=== PATIENT | female | born 1975 | race Caucasian/White ===

== ENCOUNTER 2016-10-28 20:52 | Inpatient (IN) ==
[2016-10-28] MEDS: SODIUM CHLORIDE 0.9% 1,000 ML IV STA (21:10)
[2016-10-28 21:37] LABS: Troponin I Only 0.189 NG/ML (0.00-0.045)
--- NOTE | 2016-10-28 21:40 | Emergency Department Note ---
Dmitriy Amato Emily, am scribing for, and in the presence of, Darien Lynne MD 21: 12. Maged Amato Robert M, MD, personally performed the services described in this documentation, ascribed by Elaine Izaguirre in my presence, and it is both accurate and complete . Arrival - Arrival Limitations: No Limitations Source: Patient - History of Present Illness HPI Narrative: Pt is a 41 y/o female who was transferred from [facility] to ED for further evaluation of possible chest pain that started while at work today. Pt was admitted 2 weeks for PNA and dx with COPD, given time off to rest but denies she had a heart attack then. Pt, today, c/o back and shoulder pain that started for the second time. Pt describes back pain as "pressure" and started up with movement while at work today, being her first day back. Pt notes that now in ED it has eased up. Pt has associated sxs of SOB, diaphoresis , dizziness but denies chest pain. Pt reports the same sxs when she was admitted 2 weeks ago. Pt is taking blood thinners and BP medication. Pt's BP in ED is 87/57. Onset (ago): hour(s) Consistency: constant Severity: moderate Severity scale (1-10): 6 Quality: aching Allergies/Adverse Reactions: Allergies Allergy/AdvReac Type Severity Reaction Status Date / Time No Known Allergies Allergy Unverified 10/28/16 21:06 Home Medications: Home Medications Medication Instructions Recorded Confirmed Type Albuterol Sulfate [Proair HFA] 2 puff INH Q6H PRN 10/28/16 10/28/16 History Aspirin 81 mg PO DAILY 10/28/16 10/28/16 History Folic Acid 0.8 mg PO DAILY 10/28/16 10/28/16 History Potassium Chloride 20 meq PO BID 10/28/16 10/28/16 History hydrALAZINE TAB [Apresoline Tab] 25 mg PO BID 10/28/16 10/28/16 History Review of System - Review of System 12 point system: reviewed and no additional remarkable complaints except as stated - Review of System Constitutional: Present: diaphoresis (only with pain). Absent: chills, fever Respiratory: Present: respiratory distress (with pain). Absent: cough Cardiovascular: Absent: chest pain, syncope Gastrointestinal: Absent: abdominal pain, nausea, vomiting Musculoskeletal: Present: back pain, upper back pain (shoulders). Absent: arm pain, neck pain Skin: Absent: rash Neurological: Present: other (dizziness). Absent: headache Medical,Surgical,& Family Hx - Family History Family History: noncontributory - Social History Functional capacity: independent ambulation Exam Vital Signs: Vital Signs Temperature 98.2 F 10/28/16 20:52 Pulse Rate 106 H 10/28/16 20:52 Respiratory Rate 20 10/28/16 20:52 Blood Pressure 84/61 10/28/16 20:52 O2 Sat by Pulse Oximetry 97 10/28/16 20:52 - General General appearance: alert, in no apparent distress, obese - Head Head exam: Present: atraumatic, normocephalic - Eye Eye exam: Present: PERRL, EOMI - ENT ENT exam: Present: mucous membranes moist. Absent: mucous membranes dry - Neck Neck exam: Present: full ROM. Absent: tenderness - Chest Chest inspection: Present: symmetric chest wall rise. Absent: tenderness - Respiratory Respiratory exam: Present: normal lung sounds bilaterally. Absent: respiratory distress - Cardiovascular Cardiovascular exam: Present: regular rate, normal rhythm, normal heart sounds - Abdominal Exam Abdominal exam: Present: soft. Absent: tenderness - Extremities Exam Extremities exam: Present: full ROM. Absent: tenderness, pedal edema - Neurological Exam Neurological exam: Present: alert, oriented X3, CN II-XII intact, motor sensory deficit - Psychiatric Psychiatric exam: Present: normal affect, normal mood - Skin Skin exam: Present: warm, dry, intact, normal color Course - Consultations Consultation #1: Dr. Santos was paged. Time: 21:41 Consultation #2: Dr. Santos will admit the patient. Time: 21:44 Results - Labs Lab Results: I have reviewed the patients labs (Troponin at [facility] was 0.229.) - EKG EKG results: interpreted by JAMIL (Nonspecific ST changes laterally when compared to [facility] EKG.) Disposition Clinical Impression: Chest pain Case discussed with: patient, patient's family Disposition: Still a Patient Condition: Stable Time of Disposition: 21:44
[2016-10-28] MEDS ORDERED: ZALEPLON 5 MG CAPSULE PO PRN (21:44)
[2016-10-28] MEDS ORDERED: ONDANSETRON 4 MG/2 ML VIAL IV PRN (21:44)
[2016-10-28] MEDS ORDERED: MAGNESIUM SULF RIDER 2 GM in PREMIX 1 EACH IV PRN (21:44)
[2016-10-28] MEDS ORDERED: DOCUSATE SODIUM 100 MG CAPSULE PO PRN (21:44)
[2016-10-28] MEDS ORDERED: MAGNESIUM SULF RIDER 4 GM in PREMIX 1 EACH IV PRN (21:44)
[2016-10-28] MEDS ORDERED: ENOXAPARIN 100 MG/ML SYRINGE SUBCUT ONE (22:30)
[2016-10-28] MEDS ORDERED: GLUCAGON 1 MG VIAL IM PRN (23:00)
[2016-10-28] MEDS ORDERED: DEXTROSE 50% 25 GM/50 ML VIAL IV PRN (23:00)
[2016-10-29] MEDS: SODIUM CHLORIDE 0.9% 1,000 ML IV STA (00:18)
[2016-10-29] MEDS: SODIUM CHLORIDE 0.45% 1,000 ML IV SCH ×3 (02:41→17:54)
[2016-10-29] MEDS: NITROGLYCERIN 2% OINT 1 INCH/GM PACK TOP SCH ×4 (02:45→17:35)
[2016-10-29 06:17] LABS: Troponin I Only 0.315 NG/ML (0.00-0.045)
[2016-10-29] MEDS: INSULIN LISPRO 100 UNIT/ML SUBCUT SCH ×4 (07:32→21:00)
--- NOTE | 2016-10-29 07:38 | EKG Report ---
Stationary ECG Study 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
[2016-10-29 07:39] LABS: Albumin 2.7 G/DL (3.4-5.0); Calcium 7.7 MG/DL (8.5-10.1); Magnesium 1.6 MG/DL (1.8-2.4); Osmolality,Calculated 283.8 MOS/KG (273-304); Phosphorous 4.9 MG/DL (2.5-4.9); Potassium 4.1 MMOL/L (3.5-5.1)
--- NOTE | 2016-10-29 07:41 | Cardiology History & Physical ---
Assessment and Plan (1) Unstable angina Status: Acute Assessment and plan: Patient taught is early probably unstable angina especially with a slight increase in her troponins and her history of coronary artery disease involving the LAD and stenting. Knees cart catheterization with possible Parkinson intervention but the patient's creatinine BUN are elevated. Facial probably need hydration and a time to see if this will improve. If necessary we will proceed acutely. Current Visit: Yes (2) Acute on chronic renal insufficiency Status: Acute Assessment and plan: Previously patient had normal BM creatinine but now has elevation of both. Since may be prerenal but may have underlying renal disease. We're hydrating the patient will reevaluate renal function. Current Visit: Yes (3) Coronary artery disease Status: Chronic Assessment and plan: Patient 2013 had LAD stent placed by Dr. Dow with other coronary arteries being patent. Patient jenniferflex has risk factors for coronary disease including premature family history as well as tobacco abuse. Her lipid status is unknown at this time and we are awaiting lipids. Current Visit: Yes (4) Tobacco abuse Status: Chronic Assessment and plan: She smokes at least a pack plus a day. Discussed smoking cessation with the patient. Current Visit: Yes (5) History of coronary artery stent placement Status: Acute Assessment and plan: Stenting of the LAD previous in 2013. Current Visit: Yes (6) Noncompliance Status: Chronic Assessment and plan: Patient has chronic noncompliance with follow-up in medical therapy. Current Visit: Yes History of Present Illness Chief complaint: shoulder and chest pain History of present illness: Ms. Benjamin is a 41 year old female who has known coronary artery disease. In December 2013 the patient had a non-ST segment elevation myocardial infarction and underwent cart catheterization with an ejection fraction of 60%. Coronary arteries revealed left main to be anatomically normal with the LAD having a high grade 95-99% occlusion past the first diagonal branch. Circumflex artery and RCA were without stenosis. The patient had stenting of the LAD with a 3.5 x 15 mm Xience expedition DAVINA with post-dilation with NC Quantum balloon. Since then she has not kept any follow-up with Dr. Dow or other cardiologists. In general she is only a fair historian in fact she was asleep on my arrival to the room was hard to wake up. From a cardiac standpoint she does have dyspnea on exertion but recently was told that she had COPD. The distal exertion though was just from recent history the last few weeks or months. She is admitted having for 24-40 hours of lower back pain but also having chest shoulder pressure feeling like bricks on her shoulders with shortness of breath. She may have had some mild chest discomfort. She felt a little diaphoretic. She was seen at [facility] where she was referred here for further evaluation. On arrival here she wasn't having chest any pain in her troponin was 0.189 without specific ECG abnormalities. Her total CPK was normal and her CK-MB fraction was nondetectable. This morning the patient complains of some back pain may be some slight shoulder discomfort. Her ECG is pending at the time of my interview of with her and review of her chart. Her troponin is 0.315 this morning with CPK total only 37 but now a CK-MB fraction of 3.1. She has some risk factors for coronary disease including the fact that she has had prior premature coronary disease as well as father having premature coronary disease at a young age of myocardial infarction. Mother is had a stroke. She is a heavy smoker at least one pack plus a day. She denies diabetes is not sure what her lipid status is. Her outside lab work revealed elevated BUN and creatinine consistent with chronic renal sufficiency as well as the possibility of some element of prerenal azotemia. Review of her old records from 2013 reveals that she had normal BUN and creatinine. This may need further evaluation. She's been on hydration during the night. We will recheck her lab work this morning. At this time the patient is stable. We need to reevaluate her lab work but certainly needs cardiac catheterization. I did discuss with her and her cardiac catheterization and possible per ventricle dimension reviewing indication procedure as well as how would be carried out in the risk. I discussed cardiac catheterization and percutaneous coronary intervention with the patient and available family. I reviewed with them the indications for the procedure and the basis of how the procedure would be carried out. I also reviewed with them the risk of the procedure which include but not necessarily limited to access site bleeding, bruising, pain, swelling or vascular injury that may require emergency vascular surgery, blood transfusion, or thrombin injection. Also discussed the possibility of stroke, myocardial infarction, arrhythmia which may require electrocardioversion, and the possibility of dye reaction that would require medical therapy. Also discussed the possibility of coronary artery injury, ruptured, closure or perforation that may require emergency bypass surgery. We also discussed the possibility of from a major complication. They voice understanding and agree to proceed. Home Medications Medication Instructions Recorded Confirmed Type Albuterol Sulfate [Proair HFA] 2 puff INH Q6H PRN 10/28/16 10/28/16 History Aspirin 81 mg PO DAILY 10/28/16 10/28/16 History Folic Acid 0.8 mg PO DAILY 10/28/16 10/28/16 History Potassium Chloride 20 meq PO BID 10/28/16 10/28/16 History hydrALAZINE TAB [Apresoline Tab] 25 mg PO BID 10/28/16 10/28/16 History Allergies Allergy/AdvReac Type Severity Reaction Status Date / Time No Known Allergies Allergy Unverified 10/28/16 21:06 Review of systems: Constitutional: Denies anorexia, chills, fatigue, fever, frequent falls, night sweats, weight gain, weight loss Eyes: Denies visual changes or loss of vision Ears: Denies decreased hearing, vertigo Nose, mouth and throat: Denies dysphagia, epistaxis, headaches, neck pain, tongue swelling, Neck: Denies thyromegaly or masses. No stiffness. Cardiovascular: as per HPI Respiratory: Denies cough, dyspnea, hemoptysis, dyspnea on exertion, wheezing, snoring Gastrointestinal: Denies abdominal pain, constipation, dyspepsia, dysphagia, hematemesis, hematochezia, melena, nausea, vomiting Genitourinary: Denies dysuria, hematuria, nocturia Musculoskeletal: Denies arthralgias, joint swelling, muscle weakness, myalgias Neurological: denies abnormal gait, abnormal speech, confusion, convulsions, frequent falls, headaches, memory loss, syncope Psychiatric: Denies anxiety, confusion, depression Endocrine: Denies cold intolerance, fatigue, heat intolerance Hematologic/Lymphatic: Denies easy bleeding, easy bruising Dermatologic: Denies Rash, itching, shingles Medical,Surgical,& Family Hx - Medical History Cardio: History of: CAD (prior coronary stenting of LAD), Hypertension, HI (3 YRS) Respiratory: History of: COPD, Pneumonia - Surgical History Cardiac Surgeries: Sugical HX of: Cardiac Catheterization (1 STENT) - Family History Family History: Reports;: Family Diabetes, Family Heart Disease, Family Stroke - Social History Smoking Status: Current every day smoker (smokes at least a pack a day.) Have you smoked in the last 12 months: Yes Time spent discussing smoking cessation with patient: 3 to 10 minutes Frequency of Alcohol Use: Frequently (patient drinks alcohol daily and she was unable to quantify.) Type of Drug Use: None Marital Status: Lives With:: Spouse Functional capacity: independent ambulation Cardiology Physical Exam - Constitutional Vitals: Vital Signs Temp Pulse Resp BP Pulse Ox 98.3 F 103 H 18 90/47 95 10/29/16 04:00 10/29/16 04:00 10/29/16 06:41 10/29/16 04:00 10/29/16 04:00 Intake and Output 10/28/16 10/28/16 10/29/16 15:59 23:59 07:59 Intake Total 1000 / 1000 Balance 1000 / 1000 Intake: IV 1000 / 1000 Ns 1,000 ml @ 999 mls/hr 1000 / 1000 IV 1X ED BOLUS STA Rx#: [id number] Other: Voiding Method Toilet # Voids 2 Weight 91.626 kg 91.626 kg Patient Weight 10/29/16 23:59 Weight 91.626 kg Exam: General appearance: Obese, no acute distress. The patient was very sedated on my arrival. Head exam: normal inspection, atraumatic Eye exam: Pupils are equal and reactive. EOMI. There is no trauma. Ear exam: Anatomically normal. Normal auditory acuity to conversation. Oral exam: No significant oral lesions. Her teeth were diffusely abnormal with caries. Neck exam: normal inspection no JVD. No carotid bruit. Trachea is in midline. Respiratory exam: clear to auscultation bilaterally posteriorly and anteriorly with good air movement. No rales, rhonchi or wheezes. Cardiovascular exam: regular rate and rhythm, no murmur or gallop or rub. No precordial lift. No bruits over the major arteries. Chest wall/torso: Anatomically normal. No tenderness, deformity Peripheral Pulses: 2+ throughout. GI/Abdominal exam: normal bowel sounds, soft and nontender, no abdominal bruits or pulsatile masses. Musculoskeletal/Extremities exam: normal inspection without edema or cyanosis. No deformities or trauma. Neurological exam: alert, oriented X3. There is no gross neurologic deficits. Psychiatric exam: The patient was somewhat withdrawn but may benefit from being sleepy but slow to arouse. Cognitive function is grossly intact. Skin exam: normal color, warm. No rashes or other skin lesions. Result/EKG - Labs CBC & BMP: 10/29/16 04:30 Lab Results: I have reviewed the past 24 hour labs Labs: Laboratory Results - last 24 hr 10/29/16 04:32 Total Creatine Kinase 37 D CK-MB (CK-2) 3.1 Troponin I 0.315 H D - Impressions Impressions: ECG with sinus rhythm and left ventricular hypertrophy with repolarization abnormalities. Cannot rule out lateral ischemia versus LVH repolarization changes.
--- NOTE | 2016-10-29 07:47 | EKG Report ---
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
[2016-10-29] MEDS: ENOXAPARIN 100 MG/ML SYRINGE SUBCUT SCH ×3 (07:50→21:01)
[2016-10-29 08:25] LABS: Apearance,Urine CLOUDY (Clear); Bacteria,Urine Moderate /HPF (Few); Bilirubin,Urine Negative (Negative); Blood, Urine Moderate mg/dL (Negative); Glucose,Urine (UA) Negative (Negative); Ketones,Urine Negative (Negative); Nitrite,Urine Negative (Negative); Protein,Urine Negative; RBC,Urine 37 /HPF (0-4); Squamous Epithelial Cell,Urine Moderate /HPF (0-10); Urine Color Yellow (Yellow); Urine Specific Gravity 1.009 (1.001-1.035); Urine Urobilinogen < 2.0 EU/DL (0.2-1.0); WBC,Urine 637 /HPF (0-6)
[2016-10-29] MEDS: ASPIRIN 325 MG TABLET PO SCH (09:01)
[2016-10-29] MEDS: METOPROLOL TARTRATE 25 MG TABLET PO SCH ×2 (09:01→21:00)
[2016-10-29] MEDS: PANTOPRAZOLE 40 MG TABLET PO SCH (09:01)
--- NOTE | 2016-10-29 10:14 | Physician Query Form ---
CLICK EDIT DOCUMENT TO SELECT QUERY ANSWER --> OK --> SIGN Marcella Lynne RN, CCDS Certified Clinical State [employer] W) [phone] (f) [phone] [email or web address]: Make your selection(s) from the choices in EACH section by typing an "x" and enter comments in the comment section. Please use your independent medical judgment in providing your response. This request does not imply that any particular answer is desired or expected. CLINICAL INDICATORS: (Providers should not edit this section) The medical record indicates that the patient was admitted with chest/ back pain , Urine WBC of 637#, Urine Leukocytes Large and no antibiotics were noted. Based on the above, could you clarify the appropriate diagnosis, if significant , that supports the above abnormalities and additional evaluation, monitoring, and/or treatment rendered: ( ) Patient is not being monitored or treated for an UTI (x ) Patient is being monitored or treated for an UTI ( ) Other, please specify: ( ) Clinically unable to determine COMMENTS: Use of terms such as suspected, likely, or probable (associated with a specific diagnosis that is being evaluated, monitored, or treated as if it exists) are acceptable and can be restated in the discharge summary if not ruled out. [facility]
[2016-10-29 10:27] LABS: Risk Ratio 2.37; VLDL CHOLESTEROL 29.2 MG/DL
[2016-10-29] MEDS ORDERED: MAGNESIUM SULF RIDER 2 GM in PREMIX 1 EACH IV PRN (10:27)
[2016-10-29] MEDS ORDERED: POTASSIUM CHLORIDE RIDER 10 MEQ in PREMIX 1 EACH IV PRN (10:27)
--- NOTE | 2016-10-29 14:29 | EKG Report ---
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
[2016-10-29 14:30] LABS: CKMB % 11.7 %
[2016-10-29 14:37] LABS: Troponin I Only 0.694 NG/ML (0.00-0.045)
--- NOTE | 2016-10-29 16:40 | Event Note ---
Mrs. Benjamin has history of critical LAD disease with stenting several years ago. She is status post non-STEMI and very likely has significant CAD. We will plan for right groin access that she has no preference. She probably had no trouble during her previous catheterization by her report. I discussed with the patient arrest and benefits of heart catheterization including but not limited to: , stroke, heart attack, vascular damage, reaction to medicine or dye, bleeding requiring blood transfusion, failure the procedure, possible need for planned her emergency heart surgery. I have answered all the patient's questions and the patient is agreeable to proceed.
[2016-10-29] MEDS: SODIUM CHLORIDE 0.9% 1,000 ML IV SCH (17:55)
[2016-10-30 04:25] LABS: Basophils % 0.3 % (0.0-0.8); Eosinophils # 0.3 10*3/uL (0.0-0.87); Eosinophils % 3.2 % (0.00-10.9); Hematocrit 37.4 VOL% (35.7-47.0); Lymphocytes # 2.9 10*3/uL (1.4-4.0); Lymphocytes % 30.5 % (21.3-54.2); Mean Corpuscular HGB Conc 32.1 GM/DL (32-36); Mean Corpuscular Hemoglobin 34 PG (27-34); Mean Corpuscular Volume 106.6 FL (87-102); Mean Platelet Volume 10.6 FL (9.6-12.0); Monocytes # 0.9 10*3/uL (0.11-0.8); Monocytes % 8.9 % (1.7-12.7); Neutrophils # 5.4 10*3/uL (1.4-7.4); Neutrophils % 56.1 % (38.7-73.9); Platelet Count 190 T/CUMM (130-400); Red Blood Count 3.51 MC/CUMM (3.8-5.5); Red Cell Distribution Width 13.5 % (9.3-17.3); White Blood Count 9.7 T/CUMM (4-12)
[2016-10-30 05:01] LABS: Calcium 7.9 MG/DL (8.5-10.1); Osmolality,Calculated 290.7 MOS/KG (273-304); Potassium 5.2 MMOL/L (3.5-5.1)
[2016-10-30 05:07] LABS: Albumin 2.8 G/DL (3.4-5.0); Blood Urea Nitrogen 23 MG/DL (7-18); Calcium 8.1 MG/DL (8.5-10.1); Glucose 104 MG/DL (74-106); Osmolality,Calculated 291.7 MOS/KG (273-304); Phosphorous 2.6 MG/DL (2.5-4.9); Potassium 5.1 MMOL/L (3.5-5.1); Sodium 145 MMOL/L (136-145)
[2016-10-30 05:08] LABS: Troponin I Only 0.641 NG/ML (0.00-0.045)
[2016-10-30] MEDS: ASPIRIN 325 MG TABLET PO SCH ×2 (07:09→09:30)
[2016-10-30] MEDS: METOPROLOL TARTRATE 25 MG TABLET PO SCH (07:12)
[2016-10-30] MEDS ORDERED: MIDAZOLAM 2 MG/2 ML VIAL ONE (07:39)
[2016-10-30] MEDS ORDERED: HYDROmorphone 2 MG/1 ML VIAL ONE (07:39)
[2016-10-30] MEDS ORDERED: LIDOCAINE 1% 20 ML VIAL ONE (07:41)
[2016-10-30] MEDS ORDERED: DIAZEPAM 5 MG TABLET PO ONE (08:00)
[2016-10-30] MEDS ORDERED: diphenhydrAMINE CAP 25 MG CAPSULE PO ONE (08:00)
[2016-10-30] MEDS ORDERED: LABETALOL 20 MG/4 ML SYRINGE IV ONE (08:02)
[2016-10-30] MEDS ORDERED: cefTRIAXone 1,000 MG in SODIUM CHLORIDE 0.9% 100 ML IV SCH (08:30)
--- NOTE | 2016-10-30 08:30 | Cardiac Catheterization ---
Date of Procedure:: 10/30/16 Post-op diagnosis: same Procedure: Procedures performed: 1. Left heart catheterization 2. Coronary angiography 3. Left ventriculography 4. Right femoral arterial reclosure with angina device Brief Summary: Mrs. Lane Is a 41-year-old with Prolonged Chest Pain, Troponin of 0.7 Suggestive of Non-STEMI. She Has History of Previous LAD Stenting. Description of procedure: After obtaining informed consent, the right groin was prepped and draped in the usual sterile fashion. Next a short 6 Belgian sheath was placed in the right femoral artery using a modified Seldinger technique, after the patient received IV sedation and local anesthetic. Next a JL4 catheter was advanced over a guidewire under fluoroscopic guidance, and was engaged to the left coronary artery after which angiography was performed in multiple views. This was then removed over a wire, and a JR4 catheter was advanced in similar fashion was engaged the right coronary artery after which angiography was performed in multiple views. Next a bent pigtail catheter was advanced into the left ventricle, where hemodynamic measurements were obtained, left ventriculography was performed. I was able to visualize the sheath on a "fregoso down" shot which showed the sheath was inserted in the right common femoral artery in a vessel suitable for closure. Hemostasis was obtained with Angio-Seal device with no residual bleeding. 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 Coronary angiography: The left main coronary artery is normal developed of free of disease. Left hand his ER is of average caliber proximal tapers distally does not quite reach the apex. It gives off one nearly average caliber long diagonal branch. There moderate irregularities with a widely patent mid LAD stent. The circumflex gives off 3 thin, but fairly long obtuse marginal branches late with a tiny ramus intermedius branch. There moderate irregularities. The right coronary artery is the dominant vessel and gives off a slightly thinner than average long PDA, and a thinner than average posterolaterals which has 80% proximal disease which is a bit hazy but has SHERICE 3 flow. The posterolaterals about 1.5 m in diameter. Left ventriculography: Left ventricle is normal size and normal LV systolic function. The estimated ejection fraction 60% without segmental wall motion are moderate. There is no significant mitral regurgitation noted. Impression: 1. Normal LV systolic function with ejection fraction estimated to be 60% without segmental wall motion of I 2. Right dominant system 3. Widely patent mid LAD stent 4. Only moderate irregularities in the coronary systems with the exception of 180% proximal right posterolateral stenosis (this small 1.5 multivessel) Recommendations and discussion: Given these findings, believe this Chastity is best treated medically. The culprit vessel is too small for a stent, and would probably need a 1.5 balloon. Given his SHERICE 3 flow and she has no chest pain, this can be safely treated medically. Surgeon / Physician: Rupesh Barrett Satellite Instruction Facilitator: other Estimated blood loss: minimal Specimens: none sent Condition: stable Disposition: floor - Medications / Follow-up
[2016-10-30] MEDS ORDERED: CARVEDILOL 3.125 MG TABLET PO SCH (09:00)
[2016-10-30] MEDS ORDERED: ATORVASTATIN 10 MG TABLET PO SCH (09:00)
[2016-10-30] MEDS: NITROGLYCERIN 2% OINT 1 INCH/GM PACK TOP SCH ×4 (09:27→17:19)
[2016-10-30] MEDS: SODIUM CHLORIDE 0.9% 1,000 ML IV SCH (09:29)
[2016-10-30] MEDS: INSULIN LISPRO 100 UNIT/ML SUBCUT SCH ×3 (09:29→15:29)
[2016-10-30] MEDS: PANTOPRAZOLE 40 MG TABLET PO SCH (10:21)
[2016-10-30 15:51] VITALS: BP 153/85
--- NOTE | 2016-10-30 17:31 | Discharge Summary ---
Hospital Course - Hospital Course Hospital Course: Patient admitted with chest pain. She had triple increased troponins that were flat. ECG with sinus rhythm and T-wave inversion laterally possible ischemia. There was also some inferior changes but this could also be related to LVH. The patient had cardiac catheterization with stenting of her LAD. She is seeing Dr. Dow in the past. Dr. Phil López carry car catheterization with the finding that she had widely patent LAD stent and luminal irregularities present. She had a severity small posterior lateral branch with 80% stenosis with SHERICE-3 flow. It was felt that this was not significant and too small for intervention. She should be treated medically. She was also found to have a urinary tract infection and started on IV antibiotics but can be treated as an outpatient with oral antibiotics. She is ready for discharge but will need to be careful with her leg. She will be followed up by Dr. Dow and she will continue present medications. A work form for her job was filled out. - Time spent with patient Time with patient DS: Greater than 30 minutes Diagnosis - Discharge Diagnosis (1) Unstable angina Status: Chronic (2) Acute on chronic renal insufficiency Status: Resolved (3) Coronary artery disease Status: Chronic (4) Tobacco abuse Status: Chronic (5) History of coronary artery stent placement Status: Chronic (6) Noncompliance Status: Chronic (7) Urinary tract infection Status: Acute Specialty Discharge - Follow Up or Referrals Discharge Plan - Discharge Data Disposition: Disch To Home/Self Care Condition at Discharge: Stable Discharge Diet: advance to your usual diet Activity: resume usual activities as tolerated (low level activities for 7 days. ) Hygiene: no restrictions (May start bathing in the morning) Weight Bearing at Discharge: full weight bearing Driving: not for (24-48 hours but progressed and groin feels stable.) Contact your physician if you experience:: Difficulty voiding, Redness or swelling, Bleeding Wound / Dressing Care Instructions: Leave right groin dressing on until after for shower. - Discharge Medications New Atorvastatin [Lipitor] 10 mg PO DAILY #30 tablet Carvedilol [Coreg] 3.125 mg PO BID #30 tablet Levofloxacin Tab [Levaquin Tab] 500 mg PO DAILY #7 tablet Continue Folic Acid 0.8 mg PO DAILY Albuterol Sulfate [Proair HFA] 2 puff INH Q6H PRN PRN Reason: Shortness Of Breath/Wheezing Potassium Chloride 20 meq PO BID hydrALAZINE TAB [Apresoline Tab] 25 mg PO BID Aspirin 81 mg PO DAILY - Follow Up or Referral Follow Up: Yvette Aguilar DO [Physician] - (Follow with Dr. Dow in 4 months with ECG, lipid profile with liver panel one week before visit.) - Forms/Instructions Instructions: Myocardial Infarction (GEN), Left Heart Catheterization (DC), How to Stop Smoking (GEN), Heart Healthy Diet (GEN), Coronary Artery Disease in Women (GEN) Exam - Constitutional Vitals: Period Temp Pulse Resp BP Sys/[place] Pulse Ox Last 24 Hr 96.3 F-97.8 F 71-93 16-20 95-153/59-95 92-99 Exam: General appearance: Obese, no acute distress. The patient was very sedated on my arrival. Head exam: normal inspection, atraumatic Eye exam: Pupils are equal and reactive. EOMI. There is no trauma. Ear exam: Anatomically normal. Normal auditory acuity to conversation. Oral exam: No significant oral lesions. Her teeth were diffusely abnormal with caries. Neck exam: normal inspection no JVD. No carotid bruit. Trachea is in midline. Respiratory exam: clear to auscultation bilaterally posteriorly and anteriorly with good air movement. No rales, rhonchi or wheezes. Cardiovascular exam: regular rate and rhythm, no murmur or gallop or rub. No precordial lift. No bruits over the major arteries. Chest wall/torso: Anatomically normal. No tenderness, deformity Peripheral Pulses: 2+ throughout. GI/Abdominal exam: normal bowel sounds, soft and nontender, no abdominal bruits or pulsatile masses. Musculoskeletal/Extremities exam: normal inspection without edema or cyanosis. No deformities or trauma. Her right groin post catheterization stable. Neurological exam: alert, oriented X3. There is no gross neurologic deficits. Psychiatric exam: The patient was somewhat withdrawn but may benefit from being sleepy but slow to arouse. Cognitive function is grossly intact. Skin exam: normal color, warm. No rashes or other skin lesions. Discharge Results Procedures and tests throughout hospitalization: Pending Orders 10/29/16 Urine Culture Routine 10/30/16 07:28 CL heart Routine 10/31/16 04:00 Basic Metabolic Panel IN AM Comp Blood Count Auto Diff IN AM Labs on day of discharge: Labs from last 24 hours 10/30/16 10/30/16 10/30/16 12:31 03:54 03:54 WBC 9.7 RBC 3.51 L Hgb 12.0 Hct 37.4 MCV 106.6 H MCH 34 MCHC 32.1 RDW 13.5 Plt Count 190 MPV 10.6 Neut % (Auto) 56.1 Lymph % (Auto) 30.5 [place] % (Auto) 8.9 Eos % (Auto) 3.2 Baso % (Auto) 0.3 Neut # (Auto) 5.4 Lymph # (Auto) 2.9 [place] # (Auto) 0.9 H Eos # (Auto) 0.3 Baso # (Auto) 0.0 Immature Gran % 1.0 Nucleated RBC % 0.0 Immature Gran # 0.10 Nucleated RBCs # 0.00 Sodium 145 Potassium 5.2 H Chloride 112 H Carbon Dioxide 27 Anion Gap 11.2 BUN 22 H Creatinine 0.80 GFR Calculation 101 BUN/Creatinine Ratio 27.00 H Glucose 102 POC Glucose 139 H Calculated Osmolality 290.7 Calcium 7.9 L Phosphorus Magnesium Total Creatine Kinase CK-MB (CK-2) Troponin I Albumin 10/30/16 03:54 WBC RBC Hgb Hct MCV MCH MCHC RDW Plt Count MPV Neut % (Auto) Lymph % (Auto) [place] % (Auto) Eos % (Auto) Baso % (Auto) Neut # (Auto) Lymph # (Auto) [place] # (Auto) Eos # (Auto) Baso # (Auto) Immature Gran % Nucleated RBC % Immature Gran # Nucleated RBCs # Sodium 145 Potassium 5.1 Chloride 112 H Carbon Dioxide 26 Anion Gap 12.1 BUN 23 H D Creatinine 0.80 GFR Calculation 101 BUN/Creatinine Ratio 28.00 H Glucose 104 POC Glucose Calculated Osmolality 291.7 Calcium 8.1 L Phosphorus 2.6 Magnesium 2.0 Total Creatine Kinase 47 D CK-MB (CK-2) 4.6 H Troponin I 0.641 H Albumin 2.8 L Preliminary micro results at discharge 10/29/16 Unknown Urine Culture - Preliminary Urine,Clean Catch Gram Positive Cocci - Impressions Cardiac catheterization with mild coronary disease but a very small posterior branch and a percent stenosis and SHERICE-3 flow. Treat medically. - Imaging and Cardiology Cardiology Procedure: other (see cardiac catheterization report) DS: Provider Date of admission: 10/28/16 21:44 Primary care physician: . No PCP Attending physician on admission: Nash Grey Consults: 10/30/16 08:18 Consult to Cardiac Rehabilitation [CONS] Routine Reason for Cardiac Rehabilitation: Appt Out Pt Cardiac Rehab Consult Comment: [email or web address] Discharging clinician: Nash Grey Expected date of discharge: 10/30/16
== END 2016-10-30 19:00 | disposition home or self-care (01) | DRG 287 ==
LOC: EDBD → EDUNIT# → N.ED 20:52 → N.EDINP 21:44 → N.TELEN 22:20
PROVIDERS: ADMIT Internal Medicine Cardiovascular Disease; ATTEND Internal Medicine Cardiovascular Disease
PROC: CLCCHCL (ICD-10-PCS; 2016-10-30 08:15)

== ENCOUNTER 2017-07-23 23:07 | Inpatient (IN) ==
[2017-07-24 01:11] LABS: Basophils # 0.1 10*3/uL (0.0-0.2); Basophils % 0.4 % (0.0-0.8); Eosinophils # 0.2 10*3/uL (0.0-0.87); Eosinophils % 1.4 % (0.00-10.9); Hemoglobin 13.8 GM/DL (12.0-16.0); Immature Granulocytes Absolute 0.13 #; Lymphocytes # 3.9 10*3/uL (1.4-4.0); Lymphocytes % 31.3 % (21.3-54.2); Mean Corpuscular HGB Conc 33.7 GM/DL (32-36); Mean Corpuscular Hemoglobin 33 PG (27-34); Mean Corpuscular Volume 99.3 FL (87-102); Mean Platelet Volume 10.5 FL (9.6-12.0); Monocytes # 0.6 10*3/uL (0.11-0.8); Monocytes % 5.1 % (1.7-12.7); Neutrophils # 7.5 10*3/uL (1.4-7.4); Neutrophils % 60.8 % (38.7-73.9); Platelet Count 226 T/CUMM (130-400); Red Blood Count 4.13 MC/CUMM (3.8-5.5); Red Cell Distribution Width 13.3 % (9.3-17.3); White Blood Count 12.4 T/CUMM (4-12)
[2017-07-24 01:22] LABS: INR 0.9; PT Patient Result 9.4 SECS
[2017-07-24 01:26] LABS: Albumin 3.2 G/DL (3.4-5.0); Bilirubin,Total 0.4 MG/DL (0.2-1.0); Calcium 8.3 MG/DL (8.5-10.1); Osmolality,Calculated 276.4 MOS/KG (273-304); Potassium 3.5 MMOL/L (3.5-5.1); Total Protein 6.4 G/DL (6.4-8.3)
[2017-07-24] MEDS: PANTOPRAZOLE 40 MG VIAL IV SCH ×2 (02:43→10:30)
[2017-07-24] MEDS ORDERED: ALBUTEROL 2.5 MG/3 ML NEB RESP TX PRN (03:53)
[2017-07-24 04:21] LABS: Hematocrit 38.5 VOL% (35.7-47.0); Hemoglobin 12.9 GM/DL (12.0-16.0)
[2017-07-24 09:38] LABS: Hematocrit 37.6 VOL% (35.7-47.0); Hemoglobin 12.6 GM/DL (12.0-16.0)
[2017-07-24] MEDS: hydrALAZINE 25 MG TABLET PO SCH ×2 (09:44→20:43)
[2017-07-24] MEDS: NICOTINE 14 MG/24 HR PATCH TRANSDERM SCH (09:45)
[2017-07-24] MEDS: POTASSIUM CHLORIDE 20 MEQ TABLET PO SCH ×2 (09:45→20:43)
[2017-07-24] MEDS: LISINOPRIL 20 MG TABLET PO SCH (09:45)
[2017-07-24] MEDS: hydroCHLOROthiazide 25 MG TABLET PO SCH (09:45)
[2017-07-24] MEDS: CARVEDILOL 3.125 MG TABLET PO SCH ×2 (09:45→20:43)
[2017-07-24] MEDS: FOLIC ACID 0.4 MG TABLET PO SCH (09:45)
[2017-07-24 16:03] LABS: Hematocrit 36.2 VOL% (35.7-47.0); Hemoglobin 12.4 GM/DL (12.0-16.0)
[2017-07-24] MEDS: SODIUM CHLORIDE 0.9% 1,000 ML IV SCH (20:44)
[2017-07-24 22:15] LABS: Hematocrit 37.1 VOL% (35.7-47.0); Hemoglobin 12.1 GM/DL (12.0-16.0)
[2017-07-25] MEDS: SODIUM CHLORIDE 0.9% 1,000 ML IV SCH (05:30)
[2017-07-25] MEDS: PANTOPRAZOLE 40 MG VIAL IV SCH (09:05)
[2017-07-25] MEDS: FOLIC ACID 0.4 MG TABLET PO SCH (09:06)
[2017-07-25] MEDS: CARVEDILOL 3.125 MG TABLET PO SCH (09:06)
[2017-07-25] MEDS: POTASSIUM CHLORIDE 20 MEQ TABLET PO SCH (09:06)
[2017-07-25] MEDS: LISINOPRIL 20 MG TABLET PO SCH (09:06)
[2017-07-25] MEDS: hydroCHLOROthiazide 25 MG TABLET PO SCH (09:06)
[2017-07-25] MEDS: hydrALAZINE 25 MG TABLET PO SCH (09:06)
[2017-07-25] MEDS: NICOTINE 14 MG/24 HR PATCH TRANSDERM SCH (09:07)
[2017-07-25 12:44] VITALS: BP 140/90
== END 2017-07-25 15:40 | disposition home or self-care (01) | DRG 921 ==
LOC: N.ED 23:07 → N.EDINP 07-24 03:51 → N.3E 07-24 04:15
PROVIDERS: ADMIT Pediatrics; ATTEND Pediatrics

== ENCOUNTER 2019-09-25 12:13 | Inpatient (IN) ==
[2019-09-25] MEDS ORDERED: INFLUENZA VIRUS VACCINE 0.5 ML SYRINGE IM ONE (14:08)
[2019-09-25] MEDS ORDERED: PNEUMOCOCCAL VACCINE (23 VALENT) 0.5 ML VIAL IM ONE (14:10)
[2019-09-25] MEDS ORDERED: ONDANSETRON 4 MG/2 ML VIAL IV PRN (15:07)
[2019-09-25] MEDS ORDERED: ALBUTEROL/IPRATROPIUM 3 ML NEB RESP TX PRN (15:07)
[2019-09-25] MEDS ORDERED: amLODIPine 10 MG TABLET PO SCH (15:13)
[2019-09-25] MEDS ORDERED: FUROSEMIDE 40 MG/4 ML VIAL IV SCH (15:30)
[2019-09-25] MEDS: NICOTINE 21 MG/24 HR PATCH TRANSDERM SCH (16:02)
[2019-09-25] MEDS: FUROSEMIDE 40 MG/4 ML VIAL IV SCH (16:02)
[2019-09-25] MEDS: CIPROFLOXACIN INJ 400 MG in PREMIX 1 EACH IV SCH (16:02)
[2019-09-25] MEDS: metroNIDAZOLE INJ 500 MG in PREMIX 1 EACH IV SCH (17:51)
[2019-09-25] MEDS: MORPHINE 4 MG/1 ML VIAL IV PRN (17:51)
[2019-09-25] MEDS: hydrALAZINE 20 MG/1 ML VIAL IV PRN (20:52)
[2019-09-25] MEDS: ENOXAPARIN 40 MG/0.4 ML SYRINGE SUBCUT SCH (20:56)
[2019-09-26] MEDS: metroNIDAZOLE INJ 500 MG in PREMIX 1 EACH IV SCH ×3 (01:31→17:55)
[2019-09-26] MEDS: MORPHINE 4 MG/1 ML VIAL IV PRN (01:37)
[2019-09-26] MEDS: CIPROFLOXACIN INJ 400 MG in PREMIX 1 EACH IV SCH ×2 (04:29→16:17)
[2019-09-26 05:58] LABS: Basophils # 0.1 10*3/uL (0.0-0.2); Basophils % 0.7 % (0.0-0.8); Eosinophils # 0.2 10*3/uL (0.0-0.87); Eosinophils % 1.9 % (0.00-10.9); Immature Granulocytes % 0.3 %; Immature Granulocytes Absolute 0.03 #; Lymphocytes # 1.9 10*3/uL (1.4-4.0); Lymphocytes % 19.1 % (21.3-54.2); Mean Corpuscular HGB Conc 28.5 GM/DL (32-36); Mean Corpuscular Volume 108.4 FL (87-102); Mean Platelet Volume 10.9 FL (9.6-12.0); Monocytes % 7.3 % (1.7-12.7); Neutrophils % 70.7 % (38.7-73.9); Platelet Count 202 T/CUMM (130-400); Red Blood Count 4.62 MC/CUMM (3.8-5.5); Red Cell Distribution Width 18.6 % (9.3-17.3); White Blood Count 10.2 T/CUMM (4-12)
[2019-09-26 06:16] LABS: Calcium 7.7 MG/DL (8.5-10.1); Osmolality,Calculated 270.8 MOS/KG (273-304)
[2019-09-26 06:31] LABS: Hematocrit 48.9 VOL% (35.7-47.0); Hemoglobin 14.3 GM/DL (12.0-16.0)
[2019-09-26 06:38] LABS: Hypochromasia 1+; Platelet Estimate Adequate
[2019-09-26] MEDS ORDERED: POTASSIUM CHLORIDE RIDER 10 MEQ in PREMIX 1 EACH IV PRN (07:33)
[2019-09-26] MEDS: THIAMINE 200 MG/2 ML VIAL IV SCH (09:23)
[2019-09-26] MEDS: FUROSEMIDE 40 MG/4 ML VIAL IV SCH ×2 (09:24→16:18)
[2019-09-26] MEDS: NICOTINE 21 MG/24 HR PATCH TRANSDERM SCH (09:25)
[2019-09-26] MEDS ORDERED: POTASSIUM CHLORIDE INJ 50 MEQ in SODIUM CHLORIDE 0.9% 500 ML IV ONE (12:00)
[2019-09-26] MEDS: ENOXAPARIN 40 MG/0.4 ML SYRINGE SUBCUT SCH (22:38)
[2019-09-27] MEDS: metroNIDAZOLE INJ 500 MG in PREMIX 1 EACH IV SCH ×3 (00:07→17:00)
[2019-09-27] MEDS: POTASSIUM CHLORIDE 20 MEQ TABLET PO PRN ×4 (00:07→05:56)
[2019-09-27] MEDS: CIPROFLOXACIN INJ 400 MG in PREMIX 1 EACH IV SCH ×2 (04:10→15:22)
[2019-09-27] MEDS: MORPHINE 4 MG/1 ML VIAL IV PRN (07:53)
[2019-09-27 09:14] LABS: Basophils % 0.5 % (0.0-0.8); Eosinophils # 0.1 10*3/uL (0.0-0.87); Eosinophils % 1.8 % (0.00-10.9); Hematocrit 46.4 VOL% (35.7-47.0); Hemoglobin 14.4 GM/DL (12.0-16.0); Immature Granulocytes % 0.3 %; Immature Granulocytes Absolute 0.02 #; Lymphocytes % 13.5 % (21.3-54.2); Mean Corpuscular Volume 102.9 FL (87-102); Mean Platelet Volume 10.9 FL (9.6-12.0); Monocytes % 7.9 % (1.7-12.7); Platelet Count 184 T/CUMM (130-400); Red Blood Count 4.51 MC/CUMM (3.8-5.5); Red Cell Distribution Width 17.9 % (9.3-17.3); White Blood Count 7.3 T/CUMM (4-12)
[2019-09-27 09:33] LABS: Calcium 7.6 MG/DL (8.5-10.1); Osmolality,Calculated 272.7 MOS/KG (273-304)
[2019-09-27] MEDS: NICOTINE 21 MG/24 HR PATCH TRANSDERM SCH (10:03)
[2019-09-27] MEDS: THIAMINE 200 MG/2 ML VIAL IV SCH ×2 (10:04→11:34)
[2019-09-27] MEDS: FUROSEMIDE 40 MG/4 ML VIAL IV SCH ×3 (10:04→15:21)
[2019-09-27] MEDS: POLYMYXIN/TRIMETHOPRIM OPH SOL 10 ML BOTTLE BOTH EYES SCH ×4 (10:04→20:30)
[2019-09-27] MEDS: lisinopriL 20 MG TABLET PO SCH (16:29)
[2019-09-27] MEDS: ENOXAPARIN 40 MG/0.4 ML SYRINGE SUBCUT SCH (20:30)
[2019-09-28] MEDS: hydrALAZINE 20 MG/1 ML VIAL IV PRN (00:33)
[2019-09-28] MEDS: metroNIDAZOLE INJ 500 MG in PREMIX 1 EACH IV SCH ×2 (00:35→08:29)
[2019-09-28] MEDS: CIPROFLOXACIN INJ 400 MG in PREMIX 1 EACH IV SCH (04:25)
[2019-09-28] MEDS: MORPHINE 4 MG/1 ML VIAL IV PRN (08:23)
[2019-09-28] MEDS: FUROSEMIDE 40 MG/4 ML VIAL IV SCH (08:29)
[2019-09-28] MEDS: lisinopriL 20 MG TABLET PO SCH (08:29)
[2019-09-28] MEDS: NICOTINE 21 MG/24 HR PATCH TRANSDERM SCH (08:35)
[2019-09-28] MEDS: POLYMYXIN/TRIMETHOPRIM OPH SOL 10 ML BOTTLE BOTH EYES SCH ×2 (08:36→14:34)
[2019-09-28] MEDS ORDERED: THIAMINE 100 MG TABLET PO SCH (09:00)
[2019-09-28 12:30] VITALS: BP 146/83
== END 2019-09-28 13:02 | disposition home or self-care (01) | DRG 392 ==
LOC: SUATTDRO 13:48 → N.2E 13:48
PROVIDERS: ADMIT Internal Medicine; ATTEND Internal Medicine Geriatric Medicine